=== PATIENT | female | born 1950 | race Caucasian/White ===

== ENCOUNTER 2024-06-24 18:09 | Emergency (ER) | payer SELFPAY ==
[~2024-06-24] VITALS: Ht 157.5 cm; Wt 75.3 kg
[2024-06-24] MEDS: KETOROLAC TROMETHAMINE 60 MG/2 ML VIAL IM ONE (19:27)
[2024-06-24] MEDS: TRAMADOL HCL 50 MG TAB PO ONE (19:28)
[2024-06-24 21:01] LABS: BASOPHILS % 0.2 % (0.0-1.0); HEMATOCRIT 39.6 % (34.2-44.1); HEMOGLOBIN 12.3 g/dL (12.0-16.0); LYMPHOCYTES % 6.8 % (18.0-39.1); MEAN CORPUSCULAR HGB CONC 31.1 g/dL (31-35); MONOCYTES # (AUTO) 0.5 (0.2-0.8); MONOCYTES % 3.6 % (4.4-11.3); NEUTROPHILS % 89.1 % (38.7-80.0); PLATELET COUNT 228 x10e3/uL (140-360); RED CELL DISTRIBUTION WIDTH 13.4 % (11.7-14.4); WHITE BLOOD COUNT 14.61 x10e3/uL (4.8-10.8)
[2024-06-24] MEDS: ONDANSETRON HCL INJ 2MG/ML 2ML 2 MG/ML VIAL IV STA (21:07)
[2024-06-24] MEDS: Morphine 4mg INJECTION 4 MG/ML INJ IV ONE (21:08)
[2024-06-24 21:10] LABS: INR 1.06; PROTHROMBIN TIME 14.4 seconds (11.9-14.5)
[2024-06-24 21:11] LABS: PARTIAL THROMBOPLASTIN TIME 24.8 seconds (23.8-35.5)
[2024-06-24 21:19] LABS: ALBUMIN 3.4 g/dL (3.5-5.0); ALBUMIN/GLOBULIN RATIO 1.1 (0.8-2.0); BILIRUBIN,TOTAL 0.2 mg/dL (0.2-1.2); CALCIUM 8.6 mg/dL (8.4-10.2); CREATININE, SERUM 1.09 mg/dL (0.57-1.11); TOTAL PROTEIN 6.6 g/dL (6.5-8.1)
[2024-06-24 23:06] VITALS: TEMP 98.7
[2024-06-24] MEDS: SODIUM CHLORIDE 0.9% 1000ML 1,000 ML IV ONE (23:08)
[2024-06-24 23:47] VITALS: PULSE 68; RESP 17; O2SAT 98
== END 2024-06-25 00:05 | disposition other institution (70) ==
LOC: EDBD 18:14 → ER 18:14
DX: S72.492A Other fracture of lower end of left femur, initial encounter for closed fracture (principal); W01.0XXA Fall on same level from slipping, tripping and stumbling without subsequent striking against object, initial encounter; Y93.01 Activity, walking, marching and hiking; Y92.89 Other specified places as the place of occurrence of the external cause
CPT/HCPCS: 29530; 36415; 71045; 73552; 73562; 80053; 85025; 85610; 85730; 99284; J1885; J2270; J2405; J7030